=== PATIENT | female | born 1985 | race Caucasian/White ===

== ENCOUNTER 2024-10-18 17:02 | Emergency (ER) | payer OTHER, SELFPAY ==
[2024-10-18 17:06] VITALS: BP 137/92
[2024-10-18 17:25] LABS: % Basophils 0.5 % (0-2); % Eosinophils 1.1 % (0-6); % Immature Granulocytes 0.2 % (0-0.5); % Lymphocytes 16.5 % (20.5-51.1); % Monocytes 6.3 % (1.7-9.3); % Neutrophils 75.4 % (42.2-75.2); Absolute Eosinophils 0.1 10^3/uL (0-0.7); Absolute Lymphocytes 1.3 10^3/uL (1.2-3.4); Absolute Monocytes 0.5 10^3/uL (0.1-0.6); Absolute Neutrophils 6.1 10^3/uL (1.4-6.5); Hematocrit 42.7 % (37.0-47.0); Hemoglobin 14.3 g/dL (12.0-16.0); Mean Corp Hgb Conc. 33.5 g/dL (33.0-37.0); Mean Corpuscular Volume 92.6 fL (81.0-99.0); Mean Platelet Volume 9.3 fL (7.4-10.4); Nucleated Red Blood Cells % 0 %; Platelet Count 291 10^3/uL (130-400); Red Blood Cell Count 4.61 10^6/uL (4.20-5.40); Red Cell Dist. Width 12.5 % (11.5-14.5); White Blood Cell Count 8.1 10^3/uL (4.8-10.8)
[2024-10-18 17:44] LABS: HCG, Serum Qualitative Screen Negative
[2024-10-18 17:48] LABS: ALT (SGPT) 17 U/L (0-35); AST (SGOT) 23 U/L (14-36); Albumin 4.8 g/dl (3.5-5.0); Alkaline Phosphatase 52 U/L (38-126); Blood Urea Nitrogen 10 mg/dl (7-17); Calcium 9.4 mg/dl (8.4-10.2); Carbon Dioxide 25 mmol/L (22-30); Chloride 107 mmol/L (98-107); Glucose 97 mg/dl (70-99); Sodium 140 mmol/L (135-145); Total Bilirubin 0.5 mg/dl (0.2-1.3); Total Protein 8.1 g/dl (6.3-8.2); eGFR > 60.00
--- NOTE | 2024-10-18 19:57 | ED.GENMED ---
History of Present Illness
General
Chief Complaint: Throat Problem
Source: patient
Exam Limitations: none
Time Seen by Provider: 10/18/24 19:35
Nursing documentation reviewed up to this point in time: agreed with
History of Present Illness
History of Present Illness:
The patient is a 38-year-old female who presents with sore throat as well as rash on her palms and soles. She reports initial onset of symptoms began Friday with body aches and chills, which have since resolved, along with a sore throat
which has persisted.
She noticed sores on Friday, becoming itchier however did improve some with hydrocortisone cream and Benadryl. She denies any true pain associated with sores.
The patient denies fever, chills, cough, chest pain, or shortness of breath. Patient denies any known sick contacts although she recently returned from a trip to [place] 1 week prior to onset of symptoms.
Patient states she has been able to tolerate p.o. food/liquid although is having discomfort with swallowing. She has been taking ibuprofen as needed for discomfort.
Patient was seen in urgent care earlier today where she tested negative for strep.
Patient denies any history of IV drug use.
Review of Systems
Review of Systems
Allergies reviewed?: Yes
All Other Systems: ROS reviewed and negative except as documented in HPI and ROS
Phy Exam
Physical Exam
Physical Exam:
Vitals: Mildly hypertensive, otherwise vital signs stable. Afebrile
General: Patient is well appearing, no acute distress. Nontoxic appearing
Skin: Scattered vesicular lesions on bilateral palms/fingers as well as few noted on left sole of foot. No rash/vesicles noted on arms, legs, or trunk
Head: Normocephalic, atraumatic
Eyes: Sclera nonicteric. EOMs intact. No nystagmus.
Throat: Mild pharyngeal erythema with vesicles of posterior oropharynx. No tonsillar exudates. Uvula midline. Protecting airway
Neck: Normal ROM, no cervical spine tenderness, no meningismus
Cardiac: Regular rate and rhythm, no murmurs.
Pulm: Normal respiratory effort, no wheezes, rales, rhonchi heard on exam
.
Abdomen: Abdomen soft and nontender.
Extremities: Scattered vesicular lesions of bilateral palms and left sole.
Neuro: AAOx3. Grossly intact.
Psychiatric: Normal affect.
Course
Orders/Labs/Results
Orders:
Orders
10/18/24 17:14
Test Result ONCE
10/18/24 17:17
Complete Blood Count/With Diff Urgent
Comprehensive Metabolic Panel Urgent
HCG, Serum Qualitative Screen Urgent
Abnormal Lab Results
10/18/24
17:17
Neutrophils % 75.4 H %
(42.2-75.2)
Lymphocytes % 16.5 L %
(20.5-51.1)
10/18/24 17:17
10/18/24 17:17
Vital Signs
Initial and Last Documented VS:
Initial Vital Signs
Temp Pulse Resp BP Pulse Ox
98.5 F 80 18 137/92 98
10/18/24 17:06 10/18/24 17:06 10/18/24 17:06 10/18/24 17:06 10/18/24 17:06
Last Documented Vital Signs
Temp Pulse Resp BP Pulse Ox
98.5 F 80 18 137/92 98
10/18/24 17:06 10/18/24 17:06 10/18/24 17:06 10/18/24 17:06 10/18/24 17:06
MDM/Problems Addressed
Differential Diagnosis Includes:
Not limited to: Viral illness including coxsackie virus, varicella, HSV, zoster; group A strep pharyngitis, mononucleosis, COVID/influenza, contact dermatitis, atopic dermatitis, erythema multiforme, etc.
MDM/Problems Addressed:
The patient is a 38-year-old female presenting with a sore throat and rash localized primarily on the palms and soles. Symptoms began two days ago with myalgias and fever, which have since resolved. The patient recently traveled from [place] about one
week ago, and there are no known sick contacts. The physical examination revealed scattered vesicular lesions on the bilateral palms and a few on the left foot, with additional vesicles noted in the posterior oropharynx accompanied by pharyngeal
erythema. No evidence of REGIONAL CLINICAL DIRECTOR. Cardiopulmonary examination was unremarkable. Patient overall appears well and nontoxic. Labs without clinically significant abnormalities.
The presentation and examination findings are consistent with a viral illness, most likely Coxsackie virus, with no evidence of superimposed bacterial infection or more serious etiology. The patient was advised to continue with supportive care and
follow up with primary care. Very strict return precautions were discussed should her condition worsen. Case discussed w/ attending physician.
Chronic conditions affecting care:
N/A
Acute Exacerbation and/or Progression of Chronic Illness:
N/A
*Pulse Oximetry
Patient hypoxic: no
*EKG
Interpreted by ED Provider?: NA
*Banking Representative Interpretation
Rate: Banking Representative- N/A
*Critical Care Note
Total Time (30-74mins, 75-104mins- exclusive of procedures): Not Applicable
Patient Management
Escalation/DeEscalation of care consider admission/obs:
Admit not indicated
ED Attending Note
-
Portions of this chart may have been created with voice recognition software.� Occasional wrong word or��sound alike� substitutions may have occurred due to the inherent limitations of voice recognition software.
Discharge Plan
Departure
Patient Disposition: Home (Routine Discharge)
Date of Disposition: 10/18/24
Time of Disposition: 20:37
Patient with high blood pressure during this ER visit?: Yes
Discharge Problem:
Hand, foot and mouth disease (HFMD)
Instructions: Hand, foot, and mouth disease and herpangina, BLOOD PRESSURE
Referrals:
Christophe Esteban MD [Family Provider, [facility]] - Follow up in 2-3 days
Activity Restrictions/Additional Instructions:
RETURN TO THE EMERGENCY DEPARTMENT ANY HIGH FEVERS, DIFFICULTY BREATHING OR SHORTNESS OF BREATH, DIFFICULTY SWALLOWING, POOR P.O. INTAKE, CHEST PAIN, WORSENING IN RASH, OR ANY OTHER CONCERNS
- As discussed your lab work showed no acute abnormalities in the emergency department. I suspect you likely have a viral illness, xtlo-ohud-itl-mouth disease.
- It is importantly stay well-hydrated. I would adhere to a soft diet as your sore throat improves. You can take Motrin and/or Tylenol as needed for pain.
- Follow-up with your primary care provider for further evaluation/management and to ensure that symptoms are improving
- As discussed�you are contagious likely for 7 to 10 days after onset onset of symptoms
Monitor your symptoms closely and return to the emergency department with any acute worsening/new symptoms or any other concerns
Interventions
Interventions:
*Risk Screen - Suicide Last Done: 10/18/24 20:45
*General Assessment Last Done: 10/18/24 20:45
*Neglect/Abuse Screening Last Done: 10/18/24 20:45
*ED- Fall Risk Assessment Last Done: 10/18/24 20:45
*ED COVID-19 Vaccine History Last Done: 10/18/24 20:45
*Nursing Disposition Last Done: 10/18/24 20:45
ED-EENT Assessment Last Done: 10/18/24 19:44
ED- Pulmonary Assessment Last Done: 10/18/24 19:44
Discharge Date and Time
Discharge Date/Time: 10/18/24 20:45
Print Language: SYRIAN
== END 2024-10-18 20:45 | disposition home or self-care (01) ==
LOC: EMR 17:02
PROVIDERS: Emergency Medicine; EMERGENCY PHYSICIAN Emergency Medicine; FAMILY PHYSICIAN Family Medicine
DX: B08.4 Enteroviral vesicular stomatitis with exanthem (principal)
CPT/HCPCS: 99283; 80053; 84703; 85025